=== PATIENT | male | born 1945 | race Caucasian/White ===

== ENCOUNTER 2016-10-01 09:39 | Outpatient (CLI) | payer MEDICARE ==
[2016-10-01 09:59] LABS: BASOPHILS % (AUTO) 0.6 %; EOSINOPHILS # (AUTO) 0.2 10^3/uL (0.0-0.7); HCT - HEMATOCRIT 40.7 % (42.0-52.0); HGB - HEMOGLOBIN 13.9 g/dL (14.0-18.0); LYMPHOCYTES # (AUTO) 3.6 10^3/uL (1.5-3.5); LYMPHOCYTES % (AUTO) 42.7 %; MEAN CORPUSCULAR HEMOGLOBIN 30.5 pg (27.0-31.0); MEAN CORPUSCULAR VOLUME 89.7 fL (80.0-94.0); MEAN PLATELET VOLUME 7.8 fL (7.4-11.4); MONOCYTES # (AUTO) 0.5 10^3/uL (0.0-1.0); MONOCYTES % (AUTO) 5.6 %; NEUTROPHILS # (AUTO) 4.1 10^3/uL (1.5-6.6); NEUTROPHILS % (AUTO) 49.1 %; RED BLOOD COUNT 4.54 10^6/uL (4.70-6.10); RED CELL DISTRIBUTION WIDTH 13.9 % (12.0-15.0); UNCORRECTED WHITE BLOOD COUNT 8.4 x10^3/uL; WHITE BLOOD COUNT 8.4 x10^3/uL (4.8-10.8)
[2016-10-01 10:41] LABS: ALBUMIN/GLOBULIN RATIO 1.5 (1.0-2.2); BILIRUBIN,TOTAL 0.7 mg/dL (0.2-1.0); BUN - BLOOD UREA NITROGEN 19 mg/dL (6-20); CALCIUM 9.4 mg/dL (8.5-10.3); CARBON DIOXIDE - CO2 26 mmol/L (21-32); CHLORIDE 105 mmol/L (101-111); CHOL/HDL RATIO 3.6 (<5.0); CHOLESTEROL 148 mg/dL; CREATININE 0.9 mg/dL (0.6-1.2); GFR - MDRD 84 (>89); GLUCOSE 115 mg/dL (70-100); HDL CHOLESTEROL 41 mg/dL; LDL/HDL RATIO 1.6 (<3.6); SODIUM 139 mmol/L (135-145); TOTAL PROTEIN 7.1 g/dL (6.7-8.2); TRIGLYCERIDES 215 mg/dL; VLDL CHOLESTEROL 43 mg/dL
== END 2016-10-01 09:40 | disposition home or self-care (01) ==
LOC: LAB 09:39
PROVIDERS: ATTEND Family Medicine
DX: Z00.00 Encounter for general adult medical examination without abnormal findings (principal)
CPT/HCPCS: 36415; 80053; 80061; 84403; 84443; 85025; G0103; 84153

== ENCOUNTER 2016-12-27 13:56 | Outpatient (CLI) | payer MEDICARE ==
--- NOTE | 2016-12-27 17:44 | MRI Preliminary Report ---
Exam: MRI Lumbar Spine W/O IMPRESSION: 1. Spondylosis throughout the lumbar spine as noted above. Degenerative disk and facet changes seen d iffusely. 2. L3-L4: Spondylosis with degenerative facet change predominating. Moderate canal stenosis. Bilatera l mild foraminal stenosis. 3. L4-L5: Spondylosis with degenerative facet change predominating. Marked canal stenosis. Asymmetric left foraminal disk protrusion is present with moderate left foraminal stenosis. 4. L5-S1: Spondylosis with moderate degenerative facet change. 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 This causes the exiting left L5 nerve root to be more inferior in location rather t devine descending in the left L5 lateral recess. Because of this orientation and associated degenerative facet change, moderate left foraminal stenosis is present with mass effect on exiting left L5 nerve root. Comment: The following findings are so common in adults without low back pain that while we report th eir presence, they must be interpreted with caution and in the context of the clinical situation. (Re scott Ordonez et al, Spine 2001) Prevalence of findings in patients without low back pain: Disk degeneration (any evidence): 92% Disk desiccation/T2 signal loss: 83% Disk height loss: 56% Disk bulge: 64% Disk protrusion: 32% Annular tear/high intensity zone: 38% [facility] SITE ID: [id number]
--- NOTE | 2016-12-27 17:47 | MRI Report ---
EXAM: MRI LUMBAR SPINE WITHOUT CONTRAST EXAM DATE: 12/27/2016 03:08 PM. CLINICAL HISTORY: L SCIATICA 6 MOS LEG WEAKNESS. History of bladder cancer. COMPARISON: None. TECHNIQUE: Multiplanar, multisequence T1-weighted and fluid-sensitive sequences of the lumbar spine f rom T12 to S1 without contrast. Other: None. FINDINGS: Spinal Cord: The conus terminates at L1-L2. The conus medullaris is unremarkable. Crowding in curvili near appearance to cauda equina nerve roots is seen throughout the lumbar thecal sac. Stretched appea shannen to distal cauda equina nerve roots is seen at the lumbosacral junction. Alignment: Normal. No scoliosis or spondylolisthesis. Bone Marrow: Five upn-nuj-nozpqhd lumbar vertebral bodies are assumed. No gross fractures or bone les ions. No bone marrow edema. Disk Levels/Facets: T12-L1: Unremarkable on sagittal series. Mild anterior and right anterolateral osteophyte formation i s seen. L1-L2: Minimal loss of disk space height is seen. Minimal dorsal disk bulge is present. Mild anterior and anterolateral osteophyte formation. No stenosis. L2-L3: Mild degenerative facet changes seen bilaterally. Mild thickening of the ligamentum flavum is noted. Moderate loss of disk space height is seen. Moderate lateral and ventral protrusion of disk/os teophyte complex is seen. Effacement of the thecal sac is noted. No stenosis. L3-L4: Moderate hypertrophic degenerative facet changes seen bilaterally. Moderate loss of disk space height is seen. Mild diskogenic endplate signal abnormality is present. Moderate lateral and ventral protrusion of disk/osteophyte complex is seen. Asymmetric right inferior foraminal and right lateral disk protrusion is seen. Effacement of the thecal sac is noted with crowding of cauda equina nerve r oots. Moderate canal stenosis. Mild bilateral foraminal stenosis. L4-L5: Moderate hypertrophic degenerative facet changes seen. Mild loss of disk space height is seen. While circumferential disk bulge is present. Asymmetric left foraminal disk protrusion is seen. Effa cement of the thecal sac with crowding of cauda equina nerve roots is present. Marked canal stenosis is seen. Mild effacement of exiting right L4 nerve root is seen without right foraminal stenosis. Mas s effect and effacement of exiting left L4 nerve root is present, with moderate left foraminal stenos is. L5-S1: Moderate hypertrophic degenerative facet changes seen bilaterally. Note is made of conjoined o rigin of left L5 and S1 nerve roots. This places the exiting left L5 nerve root inferiorly within the foramen. Because of the degenerative facet change, there is mass effect and effacement of exiting le ft L5 nerve root with moderate left foraminal stenosis. Musculature: Normal. No edema or fatty atrophy. Other: The partially visualized retroperitoneum is unremarkable. IMPRESSION: 1. Spondylosis throughout the lumbar spine as noted above. Degenerative disk and facet changes seen d iffusely. 2. L3-L4: Spondylosis with degenerative facet change predominating. Moderate canal stenosis. Bilatera l mild foraminal stenosis. 3. L4-L5: Spondylosis with degenerative facet change predominating. Marked canal stenosis. Asymmetric left foraminal disk protrusion is present with moderate left foraminal stenosis. 4. L5-S1: Spondylosis with moderate degenerative facet change. 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 This causes the exiting left L5 nerve root to be more inferior in location rather t devine descending in the left L5 lateral recess. Because of this orientation and associated degenerative facet change, moderate left foraminal stenosis is present with mass effect on exiting left L5 nerve root. Comment: The following findings are so common in adults without low back pain that while we report th eir presence, they must be interpreted with caution and in the context of the clinical situation. (Re scott Ordonez et al, Spine 2001) Prevalence of findings in patients without low back pain: Disk degeneration (any evidence): 92% Disk desiccation/T2 signal loss: 83% Disk height loss: 56% Disk bulge: 64% Disk protrusion: 32% Annular tear/high intensity zone: 38% [facility] Referring Provider Line: [phone] SITE ID: [id number]
== END 2016-12-27 13:57 | disposition home or self-care (01) ==
LOC: DI 13:56
PROVIDERS: ATTEND Family Medicine
DX: M51.16 Intervertebral disc disorders with radiculopathy, lumbar region (principal); M47.9 Spondylosis, unspecified
CPT/HCPCS: 72148

== ENCOUNTER 2017-05-21 12:39 | Outpatient (CLI) | payer MEDICARE ==
--- NOTE | 2017-05-22 16:28 | MRI Report ---
EXAM: MRI CERVICAL SPINE WITHOUT CONTRAST EXAM DATE: 05/21/2017 01:27 PM. CLINICAL HISTORY: Cervicalgia. COMPARISONS: CT scan of the cervical spine without contrast 12/06/2015. TECHNIQUE: Multiplanar, multisequence T1-weighted and fluid-sensitive sequences of the cervical spine without contrast. Other: None. FINDINGS: There is straightening of the normal cervical lordosis. There is a moderate decrease in the height of the disk at C4-C5, mild to moderate at C5-C6, mild at C6-C7 and C7-T1. There is diffuse desiccation of the disk spaces throughout the cervical spine except for C4-C5 which exhibits fat intensity within the disk space. There is questionable subtle elevation of the signal intensities present within the spinal cord at th e C5 through C6 levels. This may reflect a small amount of superimposed myelomalacia versus edema. The anterior to posterior dimension of the bony cervical canal is less than 14mm consistent with a co ngenital stenosis. There is endplate spondylosis demonstrated throughout the cervical spine. The craniocervical junction is normal. There is a mixture of Modic type I and type II endplate degenerative change within the C3-C4 through C6-C7 endplates. C2-C3: There is moderate right facet arthropathy. The uncovertebral hypertrophy produces moderate to severe right foraminal stenosis. There is moderate left foraminal stenosis. Recommend correlation for any right C3 radicular symptoms. There is mild ligamentum flavum hypertrophy. There is a mild centra l canal stenosis. There is minimal disk osteophyte complex abutting the sac. C3-C4: There is a small disk osteophyte complex abutting the sac. There is a mild central canal steno sis. The uncovertebral hypertrophy produces moderate to severe bilateral foraminal stenoses. There is moderate left facet arthropathy. Recommend correlation for C4 radiculopathies. There is mild right f acet arthropathy. There is no significant change at this level. C4-C5: There is a small disk osteophyte complex abutting the sac producing a mild central canal steno sis. The uncovertebral hypertrophy produces moderate to severe left foraminal stenosis in combination with severe left facet arthropathy. Recommend correlation for a left CT radiculopathy. There is mode rate narrowing of the right neural foramen. There is no significant change at this level. C5-C6: There is a broad-based disk osteophyte complex abutting the sac. There is mild ligamentum flav um hypertrophy. This combination produces a moderate to slightly greater degree of central canal sten osis. Recommend correlation for any myelopathic symptoms. Again there is subtle T2 hyperintensity sug gested on the sagittal STIR images. I cannot exclude a mild degree of superimposed edema or myelomala valentin. There is severe bilateral foraminal stenoses from uncovertebral hypertrophy. There is mild to mo derate left and mild right facet arthropathy. There is no significant change at this level. C6-C7: There is a small disk osteophyte complex eccentric to the right with superimposed right uncove rtebral hypertrophy producing severe narrowing of the right neural foramen. Recommend correlation for right C7 radiculopathy. There is mild ligamentum flavum hypertrophy. There is a moderate central can al stenosis. The facets are normal. C7-T1: There is a small disk osteophyte complex with superimposed central extrusion of the disk. Ther e is mild ligamentum flavum hypertrophy. There is a cyde-fl-qqtfvivt central canal stenosis. There is mild bilateral facet arthropathy. There is no significant change at this level. IMPRESSION: 1. There is a broad-based disk osteophyte complex abutting the sac at C5-C6 which in combination with ligamentum flavum hypertrophy and facet arthropathy produces a moderate to slightly greater degree o f central canal stenosis. There is questionable superimposed edema versus myelomalacia at this level. Recommend correlation for any myelopathic symptoms. There are severe bilateral foraminal stenoses wh ich may produce C6 radiculopathies. 2. There is a small disk osteophyte complex at C6-C7 eccentric to the right with right-sided uncovert ebral hypertrophy producing severe narrowing of the right neural foramen. Recommend correlation for r ight C7 radiculopathy. There is a moderate central canal stenosis. 3. There is a irko-xi-fteksvtr central canal stenosis at C7-T1 from small disk osteophyte complex wit h superimposed central extrusion of the disk. 4. There is a mild central canal stenosis at C4-C5 from a small disk osteophyte complex. There is mod erate to severe left foraminal stenosis. Recommend correlation for left C5 radiculopathy. 5. There are moderate to severe bilateral foraminal stenoses from uncovertebral hypertrophy at C3-C4. Recommend correlation for C4 radiculopathies. There is a mild central canal stenosis from a small di sk osteophyte complex. 6. There is moderate to severe right foraminal stenosis at C2-C3. Recommend correlation for right C3 radiculopathy. There is a mild central canal stenosis. 7. 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 Referring Provider Line: [phone] SITE ID: [id number]
== END 2017-05-21 12:40 | disposition home or self-care (01) ==
LOC: DI 12:39
PROVIDERS: ATTEND Orthopaedic Surgery
DX: M50.23 Other cervical disc displacement, cervicothoracic region (principal); M47.892 Other spondylosis, cervical region; M50.321 Other cervical disc degeneration at C4-C5 level
CPT/HCPCS: 72141

== ENCOUNTER 2018-05-19 10:04 | Outpatient (CLI) | payer MEDICARE, OTHER ==
[2018-05-19 10:30] LABS: INR 2.8 (0.8-1.2); PT - PROTHROMBIN TIME 30.7 secs (9.9-12.6)
== END 2018-05-19 10:05 | disposition home or self-care (01) ==
LOC: LAB 10:04
PROVIDERS: ATTEND Nurse Practitioner Family
DX: Z95.2 Presence of prosthetic heart valve (principal)
CPT/HCPCS: 36415; 85610

== ENCOUNTER 2019-01-09 08:57 | Outpatient (CLI) | payer MEDICARE, OTHER ==
[2019-01-09 09:35] LABS: BASOPHILS % (AUTO) 0.3 %; EOSINOPHILS # (AUTO) 0.2 10^3/uL (0.0-0.7); EOSINOPHILS % (AUTO) 1.9 %; HGB - HEMOGLOBIN 13.4 g/dL (14.0-18.0); LYMPHOCYTES # (AUTO) 7.1 10^3/uL (1.5-3.5); LYMPHOCYTES % (AUTO) 58.4 %; MEAN CORPUSCULAR HEMOGLOBIN 31.2 pg (27.0-31.0); MEAN CORPUSCULAR VOLUME 91.8 fL (80.0-94.0); MEAN PLATELET VOLUME 9.8 fL (7.4-11.4); MONOCYTES # (AUTO) 1.2 10^3/uL (0.0-1.0); MONOCYTES % (AUTO) 9.8 %; NEUTROPHILS # (AUTO) 3.5 10^3/uL (1.5-6.6); NEUTROPHILS % (AUTO) 29.3 %; PLT - PLATELET COUNT 179 10^3/uL (130-450); RED BLOOD COUNT 4.29 10^6/uL (4.70-6.10); WHITE BLOOD COUNT 12.1 x10^3/uL (4.8-10.8)
[2019-01-10 10:05] LABS: HOMOCYSTEINE 9.9 umol/L (<11.4)
== END 2019-01-09 08:58 | disposition home or self-care (01) ==
LOC: LAB 08:57
PROVIDERS: ATTEND Family Medicine
DX: E29.1 Testicular hypofunction (principal); E78.5 Hyperlipidemia, unspecified; E55.9 Vitamin D deficiency, unspecified; E72.11 Homocystinuria
CPT/HCPCS: 36415; 81599; 82306; 82670; 83090; 85025

== ENCOUNTER 2020-07-25 14:10 | Outpatient (CLI) | payer MEDICARE | END 2020-07-25 14:11 | disposition home or self-care (01) | LOC: COV 14:10 | PROVIDERS: ATTEND Pain Medicine Interventional Pain Medicine | DX: Z01.812 Encounter for preprocedural laboratory examination (principal); M48.061 Spinal stenosis, lumbar region without neurogenic claudication; Z20.822 Contact with and (suspected) exposure to COVID-19 ==

== ENCOUNTER 2021-03-11 12:34 | Outpatient (CLI) | payer MEDICARE | END 2021-03-11 12:35 | disposition home or self-care (01) | LOC: LAB.S 12:34 | PROVIDERS: ATTEND Internal Medicine | DX: Z79.01 Long term (current) use of anticoagulants (principal) | CPT/HCPCS: 36416; 85610 ==

== ENCOUNTER 2021-04-14 14:03 | Outpatient (CLI) | payer MEDICARE | END 2021-04-14 14:04 | disposition home or self-care (01) | LOC: LAB.S 14:03 | PROVIDERS: ATTEND Internal Medicine | DX: Z79.01 Long term (current) use of anticoagulants (principal) | CPT/HCPCS: 36416; 85610 ==

== ENCOUNTER 2021-04-28 14:28 | Outpatient (CLI) | payer MEDICARE | END 2021-04-28 14:29 | disposition home or self-care (01) | LOC: LAB.S 14:28 | PROVIDERS: ATTEND Internal Medicine | DX: Z79.01 Long term (current) use of anticoagulants (principal) | CPT/HCPCS: 36416; 85610 ==

== ENCOUNTER 2021-06-04 16:00 | Outpatient (CLI) | payer MEDICARE, OTHER | END 2021-06-04 16:01 | disposition home or self-care (01) | LOC: LAB.S 16:00 | PROVIDERS: ATTEND Internal Medicine | DX: Z79.01 Long term (current) use of anticoagulants (principal) | CPT/HCPCS: 36416; 85610 ==

== ENCOUNTER 2021-06-18 15:35 | Outpatient (CLI) | payer MEDICARE, OTHER | END 2021-06-18 15:36 | disposition home or self-care (01) | LOC: LAB.S 15:35 | PROVIDERS: ATTEND Internal Medicine | DX: Z79.01 Long term (current) use of anticoagulants (principal) | CPT/HCPCS: 36416; 85610 ==

== ENCOUNTER 2021-07-10 15:16 | Outpatient (CLI) | payer MEDICARE, OTHER | END 2021-07-10 15:17 | disposition home or self-care (01) | LOC: LAB.S 15:16 | PROVIDERS: ATTEND Internal Medicine | DX: Z79.01 Long term (current) use of anticoagulants (principal) | CPT/HCPCS: 36416; 85610 ==

== ENCOUNTER 2021-07-21 14:37 | Outpatient (CLI) | payer MEDICARE, OTHER | END 2021-07-21 14:38 | disposition home or self-care (01) | LOC: LAB.S 14:37 | PROVIDERS: ATTEND Internal Medicine | DX: Z79.01 Long term (current) use of anticoagulants (principal) | CPT/HCPCS: 36416; 85610 ==

== ENCOUNTER 2021-08-12 14:58 | Outpatient (CLI) | payer MEDICARE, OTHER | END 2021-08-12 14:59 | disposition home or self-care (01) | LOC: LAB.S 14:58 | PROVIDERS: ATTEND Registered Nurse | DX: Z79.01 Long term (current) use of anticoagulants (principal) | CPT/HCPCS: 36416; 85610 ==

== ENCOUNTER 2021-09-30 15:05 | Outpatient (CLI) | payer MEDICARE, OTHER ==
[2021-09-30 19:55] LABS: BASOPHILS % (AUTO) 0.5 %; HCT - HEMATOCRIT 44.7 % (42.0-52.0); LYMPHOCYTES % (AUTO) 62.7 %; MEAN CORPUSCULAR HGB CONC 31.3 g/dL (32.0-36.0); MEAN CORPUSCULAR VOLUME 95.9 fL (80.0-94.0); MEAN PLATELET VOLUME 11.3 fL (7.4-11.4); MONOCYTES % (AUTO) 10.8 %; NEUTROPHILS % (AUTO) 24.7 %; PLT - PLATELET COUNT 204 10^3/uL (130-450); RED BLOOD COUNT 4.66 10^6/uL (4.70-6.10); RED CELL DISTRIBUTION WIDTH 13.4 % (12.0-15.0); WHITE BLOOD COUNT 21.5 x10^3/uL (4.8-10.8)
[2021-09-30 20:04] LABS: ABNORMAL LYMPHS % (MANUAL) 0 %; BAND NEUTROPHILS % (MANUAL) 0 %
[2021-09-30 20:13] LABS: ALBUMIN 4.3 g/dL (3.2-5.5); ALBUMIN/GLOBULIN RATIO 1.9 (1.0-2.2); ALKALINE PHOSPHATASE 69 IU/L (42-121); ALT ALANINE AMINOTRANSFERASE 29 IU/L (10-60); AST ASPARTATE AMINOTRANSFERASE 25 IU/L (10-42); BILIRUBIN,TOTAL 0.7 mg/dL (0.2-1.0); BUN - BLOOD UREA NITROGEN 17 mg/dL (6-20); CALCIUM 9.5 mg/dL (8.5-10.3); CARBON DIOXIDE - CO2 26 mmol/L (21-32); CHLORIDE 103 mmol/L (101-111); CHOLESTEROL 134 mg/dL; CREATININE 0.8 mg/dL (0.6-1.2); GFR - MDRD 94 (>89); GLUCOSE 94 mg/dL (70-100); HDL CHOLESTEROL 44 mg/dL; LDL CHOLESTEROL,CALCULATED 55 mg/dL; LDL/HDL RATIO 1.3 (<3.6); POTASSIUM 4.3 mmol/L (3.5-5.0); SODIUM 138 mmol/L (135-145); TOTAL PROTEIN 6.6 g/dL (6.7-8.2); TRIGLYCERIDES 177 mg/dL; VLDL CHOLESTEROL 35 mg/dL
[2021-09-30 20:32] LABS: THYROID STIMULATING HORMONE 0.98 uIU/mL (0.34-5.60)
[2021-09-30 20:53] LABS: EOSINOPHILS # (MANUAL) 0.2 10^3/uL (0-0.7); LYMPHOCYTES # (MANUAL) 13.5 10^3/uL (1.5-3.5); LYMPHOCYTES % (MANUAL) 63 %; MONOCYTES # (MANUAL) 0.6 10^3/uL (0.0-1.0); NEUTROPHILS # (MANUAL) 7.1 10^3/uL (1.5-6.6)
[2021-09-30 20:55] LABS: PLATELET ESTIMATE, MANUAL NORMAL (130-450,000) (NORMAL); PLATELET MORPHOLOGY NORMAL APPEARANCE (NORMAL); RBC MORPHOLOGY (MULTIPLE) NORMAL APPEARANCE (NORMAL)
[2021-09-30 20:56] LABS: WBC MORPHOLOGY (MULTIPLE) NORMAL APPEARANCE (NORMAL)
[2021-09-30 20:57] LABS: DIFFERENTIAL COMMENT MANUAL DIFFERENTIAL
== END 2021-09-30 15:06 | disposition home or self-care (01) ==
LOC: LAB.S 15:05
PROVIDERS: ATTEND Registered Nurse
DX: I10 Essential (primary) hypertension (principal); E78.5 Hyperlipidemia, unspecified; Z12.5 Encounter for screening for malignant neoplasm of prostate; E03.9 Hypothyroidism, unspecified
CPT/HCPCS: 36415; 80053; 80061; 84443; 85025; G0103; 83721; 84153

== ENCOUNTER 2021-10-23 14:24 | Outpatient (CLI) | payer MEDICARE, OTHER | END 2021-10-23 14:25 | disposition home or self-care (01) | LOC: LAB.S 14:24 | PROVIDERS: ATTEND Registered Nurse | DX: Z79.01 Long term (current) use of anticoagulants (principal) | CPT/HCPCS: 36416; 85610 ==

== ENCOUNTER 2022-01-11 10:57 | Outpatient (CLI) | payer MEDICARE, OTHER | END 2022-01-11 10:58 | disposition home or self-care (01) | LOC: LAB.S 10:57 | PROVIDERS: ATTEND Registered Nurse | DX: Z79.01 Long term (current) use of anticoagulants (principal) | CPT/HCPCS: 36416; 85610 ==

== ENCOUNTER 2022-01-19 10:34 | Outpatient (CLI) | payer MEDICARE, OTHER | END 2022-01-19 10:35 | disposition home or self-care (01) | LOC: LAB.S 10:34 | PROVIDERS: ATTEND Registered Nurse | DX: Z79.01 Long term (current) use of anticoagulants (principal) | CPT/HCPCS: 36416; 85610 ==

== ENCOUNTER 2022-02-12 14:13 | Outpatient (CLI) | payer MEDICARE, OTHER | END 2022-02-12 14:14 | disposition home or self-care (01) | LOC: LAB.S 14:13 | PROVIDERS: ATTEND Nurse Practitioner Family | DX: Z79.01 Long term (current) use of anticoagulants (principal); Z95.2 Presence of prosthetic heart valve | CPT/HCPCS: 36416; 85610 ==

== ENCOUNTER 2022-03-15 11:55 | Outpatient (CLI) | payer MEDICARE, OTHER | END 2022-03-15 11:56 | disposition home or self-care (01) | LOC: LAB.S 11:55 | PROVIDERS: ATTEND Nurse Practitioner Family | DX: Z79.01 Long term (current) use of anticoagulants (principal); Z95.2 Presence of prosthetic heart valve | CPT/HCPCS: 36416; 85610 ==

== ENCOUNTER 2022-04-20 10:56 | Outpatient (CLI) | payer MEDICARE, OTHER | END 2022-04-20 10:57 | disposition home or self-care (01) | LOC: LAB.S 10:56 | PROVIDERS: ATTEND Nurse Practitioner Family | DX: Z79.01 Long term (current) use of anticoagulants (principal); Z95.2 Presence of prosthetic heart valve | CPT/HCPCS: 36416; 85610 ==

== ENCOUNTER 2022-05-21 13:42 | Outpatient (CLI) | payer MEDICARE, OTHER | END 2022-05-21 13:43 | disposition home or self-care (01) | LOC: LAB.S 13:42 | PROVIDERS: ATTEND Nurse Practitioner Family | DX: Z79.01 Long term (current) use of anticoagulants (principal); Z95.2 Presence of prosthetic heart valve | CPT/HCPCS: 36416; 85610 ==

== ENCOUNTER 2022-06-22 13:33 | Outpatient (CLI) | payer MEDICARE, OTHER | END 2022-06-22 13:34 | disposition home or self-care (01) | LOC: LAB.S 13:33 | PROVIDERS: ATTEND Nurse Practitioner Family | DX: Z79.01 Long term (current) use of anticoagulants (principal); Z95.2 Presence of prosthetic heart valve | CPT/HCPCS: 36416; 85610 ==

== ENCOUNTER 2022-07-16 13:58 | Outpatient (CLI) | payer MEDICARE, OTHER | END 2022-07-16 13:59 | disposition home or self-care (01) | LOC: LAB.S 13:58 | PROVIDERS: ATTEND Nurse Practitioner Family | DX: Z79.01 Long term (current) use of anticoagulants (principal); Z95.2 Presence of prosthetic heart valve | CPT/HCPCS: 36416; 85610 ==

== ENCOUNTER 2022-08-06 11:41 | Outpatient (CLI) | payer MEDICARE, OTHER | END 2022-08-06 11:42 | disposition home or self-care (01) | LOC: LAB.S 11:41 | PROVIDERS: ATTEND Nurse Practitioner Family | DX: Z79.01 Long term (current) use of anticoagulants (principal); Z95.2 Presence of prosthetic heart valve | CPT/HCPCS: 36416; 85610 ==

== ENCOUNTER 2022-09-10 10:06 | Outpatient (CLI) | payer MEDICARE, OTHER ==
[2022-09-10 15:01] LABS: BASOPHILS % (AUTO) 0.4 %; EOSINOPHILS % (AUTO) 0.7 %; HCT - HEMATOCRIT 42.7 % (42.0-52.0); HGB - HEMOGLOBIN 13.7 g/dL (14.0-18.0); LYMPHOCYTES % (AUTO) 74.2 %; MEAN CORPUSCULAR HEMOGLOBIN 30.4 pg (27.0-31.0); MEAN CORPUSCULAR HGB CONC 32.1 g/dL (32.0-36.0); MEAN CORPUSCULAR VOLUME 94.9 fL (80.0-94.0); MONOCYTES % (AUTO) 8.5 %; PLT - PLATELET COUNT 210 10^3/uL (130-450); RED CELL DISTRIBUTION WIDTH 13.2 % (12.0-15.0); WHITE BLOOD COUNT 26.8 x10^3/uL (4.8-10.8)
[2022-09-10 15:05] LABS: ABNORMAL LYMPHS % (MANUAL) 0 %; BAND NEUTROPHILS % (MANUAL) 0 %
[2022-09-10 15:41] LABS: FREE T3 2.64 pg/mL (2.5-3.9)
[2022-09-10 15:42] LABS: THYROID STIMULATING HORMONE 0.41 uIU/mL (0.34-5.60)
[2022-09-10 15:45] LABS: FREE T4 (FREE THYROXINE) 0.97 ng/dL (0.58-1.64)
[2022-09-10 16:09] LABS: ALBUMIN/GLOBULIN RATIO 1.5 (1.0-2.2); BILIRUBIN,TOTAL 0.5 mg/dL (0.2-1.0); CALCIUM 9.4 mg/dL (8.5-10.3); CREATININE 0.7 mg/dL (0.6-1.2); POTASSIUM 4.2 mmol/L (3.5-5.0); TOTAL PROTEIN 6.6 g/dL (6.7-8.2)
[2022-09-10 16:15] LABS: CHOL/HDL RATIO 2.5 (<5.0); CHOLESTEROL 141 mg/dL; HDL CHOLESTEROL 57 mg/dL; LDL CHOLESTEROL,CALCULATED 67 mg/dL; LDL/HDL RATIO 1.2 (<3.6); TRIGLYCERIDES 84 mg/dL; URIC ACID 4.2 mg/dL (2.6-7.2); VLDL CHOLESTEROL 17 mg/dL
[2022-09-10 16:41] LABS: DIFFERENTIAL COMMENT MANUAL DIFFERENTIAL; LYMPHOCYTES # (MANUAL) 21.4 10^3/uL (1.5-3.5); LYMPHOCYTES % (MANUAL) 80 %; MONOCYTES # (MANUAL) 0.8 10^3/uL (0.0-1.0); NEUTROPHILS # (MANUAL) 4.6 10^3/uL (1.5-6.6); PLATELET ESTIMATE, MANUAL NORMAL (130-450,000) (NORMAL); PLATELET MORPHOLOGY NORMAL APPEARANCE (NORMAL); RBC MORPHOLOGY (MULTIPLE) NORMAL APPEARANCE (NORMAL)
[2022-09-10 20:50] LABS: ESTIMATED AVERAGE GLUCOSE 114 mg/dL (70-100); HEMOGLOBIN A1c% 5.6 % (4.27-6.07)
== END 2022-09-10 10:07 | disposition home or self-care (01) ==
LOC: LAB.S 10:06
PROVIDERS: ATTEND Nurse Practitioner Family
DX: I10 Essential (primary) hypertension (principal); Z79.01 Long term (current) use of anticoagulants; Z95.2 Presence of prosthetic heart valve; E78.5 Hyperlipidemia, unspecified; E66.9 Obesity, unspecified; E03.9 Hypothyroidism, unspecified; Z87.39 Personal history of other diseases of the musculoskeletal system and connective tissue
CPT/HCPCS: 36415; 80053; 80061; 83036; 83721; 84439; 84443; 84481; 84550; 85025; 85610

== ENCOUNTER 2022-10-08 13:34 | Outpatient (CLI) | payer MEDICARE, OTHER | END 2022-10-08 13:35 | disposition home or self-care (01) | LOC: LAB.S 13:34 | PROVIDERS: ATTEND Nurse Practitioner Family | DX: Z79.01 Long term (current) use of anticoagulants (principal); Z95.2 Presence of prosthetic heart valve | CPT/HCPCS: 36416; 85610 ==

== ENCOUNTER 2022-11-24 13:51 | Outpatient (CLI) | payer MEDICARE, OTHER | END 2022-11-24 13:52 | disposition home or self-care (01) | LOC: LAB.S 13:51 | PROVIDERS: ATTEND Nurse Practitioner Family | DX: Z79.01 Long term (current) use of anticoagulants (principal); Z95.2 Presence of prosthetic heart valve | CPT/HCPCS: 36416; 85610 ==

== ENCOUNTER 2022-12-22 14:01 | Outpatient (CLI) | payer MEDICARE, OTHER | END 2022-12-22 14:02 | disposition home or self-care (01) | LOC: LAB.S 14:01 | PROVIDERS: ATTEND Nurse Practitioner Family | DX: Z79.01 Long term (current) use of anticoagulants (principal); Z95.2 Presence of prosthetic heart valve | CPT/HCPCS: 36416; 85610 ==

== ENCOUNTER 2023-02-10 13:25 | Outpatient (CLI) | payer MEDICARE, OTHER | END 2023-02-10 13:26 | disposition home or self-care (01) | LOC: LAB.S 13:25 | PROVIDERS: ATTEND Nurse Practitioner Family | DX: Z79.01 Long term (current) use of anticoagulants (principal); Z95.2 Presence of prosthetic heart valve; Z12.5 Encounter for screening for malignant neoplasm of prostate | CPT/HCPCS: 36415; 85610; G0103; 84153 ==

== ENCOUNTER 2023-03-25 13:20 | Outpatient (CLI) | payer MEDICARE, OTHER | END 2023-03-25 13:21 | disposition home or self-care (01) | LOC: LAB.S 13:20 | PROVIDERS: ATTEND Nurse Practitioner Family | DX: Z79.01 Long term (current) use of anticoagulants (principal); Z95.2 Presence of prosthetic heart valve | CPT/HCPCS: 36416; 85610 ==

== ENCOUNTER 2023-04-27 13:52 | Outpatient (CLI) | payer MEDICARE, OTHER | END 2023-04-27 13:53 | disposition home or self-care (01) | LOC: LAB.S 13:52 | PROVIDERS: ATTEND Nurse Practitioner Family | DX: Z51.81 Encounter for therapeutic drug level monitoring (principal); Z79.01 Long term (current) use of anticoagulants; Z95.2 Presence of prosthetic heart valve | CPT/HCPCS: 36416; 85610 ==

== ENCOUNTER 2023-05-27 13:48 | Outpatient (CLI) | payer MEDICARE, OTHER | END 2023-05-27 13:49 | disposition home or self-care (01) | LOC: LAB.S 13:48 | PROVIDERS: ATTEND Nurse Practitioner Family | DX: Z51.81 Encounter for therapeutic drug level monitoring (principal); Z79.01 Long term (current) use of anticoagulants; Z95.2 Presence of prosthetic heart valve | CPT/HCPCS: 36416; 85610 ==

== ENCOUNTER 2023-06-10 14:03 | Outpatient (CLI) | payer MEDICARE, OTHER | END 2023-06-10 14:04 | disposition home or self-care (01) | LOC: LAB.S 14:03 | PROVIDERS: ATTEND Nurse Practitioner Family | DX: Z51.81 Encounter for therapeutic drug level monitoring (principal); Z79.01 Long term (current) use of anticoagulants; Z95.2 Presence of prosthetic heart valve | CPT/HCPCS: 36416; 85610 ==

== ENCOUNTER 2023-07-12 14:12 | Outpatient (CLI) | payer MEDICARE, OTHER | END 2023-07-12 14:13 | disposition home or self-care (01) | LOC: LAB.S 14:12 | PROVIDERS: ATTEND Nurse Practitioner Family | DX: Z79.01 Long term (current) use of anticoagulants (principal); Z95.2 Presence of prosthetic heart valve | CPT/HCPCS: 36416; 85610 ==

== ENCOUNTER 2023-08-26 10:31 | Outpatient (CLI) | payer MEDICARE, OTHER ==
[2023-08-26 15:13] LABS: BASOPHILS % (AUTO) 0.4 %; EOSINOPHILS % (AUTO) 0.9 %; HCT - HEMATOCRIT 41.1 % (42.0-52.0); HGB - HEMOGLOBIN 12.9 g/dL (14.0-18.0); LYMPHOCYTES % (AUTO) 76.3 %; MEAN CORPUSCULAR HEMOGLOBIN 29.7 pg (27.0-31.0); MEAN CORPUSCULAR HGB CONC 31.4 g/dL (32.0-36.0); MEAN CORPUSCULAR VOLUME 94.7 fL (80.0-94.0); MEAN PLATELET VOLUME 11.3 fL (7.4-11.4); MONOCYTES % (AUTO) 9.9 %; NEUTROPHILS % (AUTO) 12.2 %; PLT - PLATELET COUNT 184 10^3/uL (130-450); RED BLOOD COUNT 4.34 10^6/uL (4.70-6.10); RED CELL DISTRIBUTION WIDTH 13.1 % (12.0-15.0); WHITE BLOOD COUNT 30.3 x10^3/uL (4.8-10.8)
[2023-08-26 15:23] LABS: SLIDE REVIEW? Indicated
[2023-08-26 15:24] LABS: ABNORMAL LYMPHS % (MANUAL) 0 %
[2023-08-26 16:14] LABS: THYROID STIMULATING HORMONE 0.72 uIU/mL (0.34-5.60)
[2023-08-26 16:17] LABS: ALBUMIN 4.3 g/dL (3.2-5.5); ALBUMIN/GLOBULIN RATIO 2.4 (1.0-2.2); ALKALINE PHOSPHATASE 66 IU/L (42-121); ALT ALANINE AMINOTRANSFERASE 19 IU/L (10-60); AST ASPARTATE AMINOTRANSFERASE 19 IU/L (10-42); BILIRUBIN,TOTAL 0.4 mg/dL (0.2-1.0); BUN - BLOOD UREA NITROGEN 16 mg/dL (6-20); CALCIUM 9.6 mg/dL (8.5-10.3); CARBON DIOXIDE - CO2 29 mmol/L (21-32); CHLORIDE 107 mmol/L (101-111); CHOL/HDL RATIO 2.9 (<5.0); CHOLESTEROL 130 mg/dL; CREATININE 0.8 mg/dL (0.6-1.3); GFR - MDRD 94 (>89); GLUCOSE 98 mg/dL (74-104); HDL CHOLESTEROL 45 mg/dL; LDL CHOLESTEROL,CALCULATED 59 mg/dL; LDL/HDL RATIO 1.3 (<3.6); POTASSIUM 4.2 mmol/L (3.5-4.5); SODIUM 141 mmol/L (135-145); TOTAL PROTEIN 6.1 g/dL (6.4-8.9); TRIGLYCERIDES 131 mg/dL (48-352); URIC ACID 3.8 mg/dL (4.4-7.6); VLDL CHOLESTEROL 26 mg/dL
[2023-08-26 17:51] LABS: BAND NEUTROPHILS % (MANUAL) 1 %; LYMPHOCYTES # (MANUAL) 25.5 10^3/uL (1.5-3.5); LYMPHOCYTES % (MANUAL) 29 %; MONOCYTES # (MANUAL) 1.8 10^3/uL (0.0-1.0); REACTIVE LYMPHS % (MANUAL) 55 %
[2023-08-26 17:52] LABS: PLATELET MORPHOLOGY NORMAL APPEARANCE (NORMAL); RBC MORPHOLOGY (MULTIPLE) NORMAL APPEARANCE (NORMAL)
[2023-08-26 17:53] LABS: DIFFERENTIAL COMMENT MANUAL DIFFERENTIAL; PLATELET ESTIMATE, MANUAL NORMAL (130-450,000) (NORMAL)
[2023-08-26 21:27] LABS: ESTIMATED AVERAGE GLUCOSE 128 mg/dL (70-100); HEMOGLOBIN A1c% 6.1 % (4.27-6.07)
== END 2023-08-26 10:32 | disposition home or self-care (01) ==
LOC: LAB.S 10:31
PROVIDERS: ATTEND Nurse Practitioner Family
DX: I10 Essential (primary) hypertension (principal); E78.5 Hyperlipidemia, unspecified; E66.9 Obesity, unspecified; E03.9 Hypothyroidism, unspecified; Z86.39 Personal history of other endocrine, nutritional and metabolic disease
CPT/HCPCS: 36415; 80053; 80061; 83036; 83721; 84443; 84550; 85025

== ENCOUNTER 2023-09-08 13:26 | Outpatient (CLI) | payer MEDICARE, OTHER | END 2023-09-08 13:27 | disposition home or self-care (01) | LOC: LAB.S 13:26 | PROVIDERS: ATTEND Nurse Practitioner Family | DX: Z79.01 Long term (current) use of anticoagulants (principal); Z95.2 Presence of prosthetic heart valve | CPT/HCPCS: 36416; 85610 ==

== ENCOUNTER 2023-10-05 13:24 | Outpatient (CLI) | payer MEDICARE, OTHER | END 2023-10-05 13:25 | disposition home or self-care (01) | LOC: LAB.S 13:24 | PROVIDERS: ATTEND Nurse Practitioner Family | DX: Z51.81 Encounter for therapeutic drug level monitoring (principal); Z79.01 Long term (current) use of anticoagulants; Z95.2 Presence of prosthetic heart valve | CPT/HCPCS: 36416; 85610 ==

== ENCOUNTER 2023-10-28 11:16 | Outpatient (CLI) | payer MEDICARE, OTHER | END 2023-10-28 11:17 | disposition home or self-care (01) | LOC: LAB.S 11:16 | PROVIDERS: ATTEND Nurse Practitioner Family | DX: Z51.81 Encounter for therapeutic drug level monitoring (principal); Z79.01 Long term (current) use of anticoagulants; Z95.2 Presence of prosthetic heart valve | CPT/HCPCS: 36416; 85610 ==

== ENCOUNTER 2023-11-30 13:38 | Outpatient (CLI) | payer MEDICARE, OTHER | END 2023-11-30 13:39 | disposition home or self-care (01) | LOC: LAB.S 13:38 | PROVIDERS: ATTEND Nurse Practitioner Family | DX: Z79.01 Long term (current) use of anticoagulants (principal); Z95.2 Presence of prosthetic heart valve | CPT/HCPCS: 36416; 85610 ==

== ENCOUNTER 2023-12-21 14:10 | Outpatient (CLI) | payer MEDICARE, OTHER | END 2023-12-21 14:11 | disposition home or self-care (01) | LOC: LAB.S 14:10 | PROVIDERS: ATTEND Nurse Practitioner Family | DX: Z51.81 Encounter for therapeutic drug level monitoring (principal); Z79.01 Long term (current) use of anticoagulants; Z95.2 Presence of prosthetic heart valve | CPT/HCPCS: 36416; 85610 ==